=== PATIENT | male | born 1950 | race Caucasian/White ===

== ENCOUNTER 2017-08-10 18:01 | Inpatient (IN) | payer SELFPAY ==
[~2017-08-10] VITALS: Ht 170.2 cm; Wt 79.0 kg
[2017-08-10 18:08] VITALS: Ht 170.2 cm; Wt 79.0 kg
[2017-08-10 20:34] LABS: BASOPHIL % 0.4 % (0-2); PLATELET COUNT 245 x10^3mcL (130-400); RED CELL DISTRIBUTION WIDTH 11.6 % (11.5-14.5)
[2017-08-10 20:46] LABS: CALCIUM 9.5 mg/dL (8.5-10.1); CARBON DIOXIDE 28.7 mmol/L (21-32); CHLORIDE SERUM 99 mmol/L (98-107); CREATININE SERUM 0.9 mg/dL (0.7-1.3); GFR1 > 60 mL/min; GLUCOSE SERUM 276 mg/dL (74-106); POTASSIUM SERUM 3.9 mmol/L (3.5-5.1); SODIUM SERUM 135 mmol/L (136-145)
[2017-08-10 20:50] LABS: ALBUMIN 3.4 g/dL (3.4-5.0); ALKALINE PHOSPHATASE 110 U/L (46-116); ALT/SGPT 33 U/L (16-63); AST/SGOT 18 U/L (15-37); BILIRUBIN TOTAL 0.3 mg/dL (0.20-1.00); TOTAL PROTEIN, SERUM 8.1 g/dL (6.4-8.2)
[2017-08-10 21:21] VITALS: BP 188/93
[2017-08-10 21:59] VITALS: BP 150/70
[2017-08-11 00:05] LABS: microscopic required? YES; urine erythrocyte NEGATIVE (NEGATIVE)
[2017-08-11 00:13] LABS: AMPHETAMINE QUAL UR NONE DETECTED (NEG <=1000)
[2017-08-11 01:48] LABS: MAGNESIUM 2.1 mg/dL (1.8-2.4); PHOSPHOROUS 3.6 mg/dL (2.5-4.9)
[2017-08-11 01:58] LABS: CHOLESTEROL/HDL RATIO 6.5
[2017-08-11 02:03] LABS: FREE T4 1.3 ng/dL (0.76-1.46); FREE THYROXINE INDEX 3.3 ug/dL (1.4-4.5); T4(THYROXINE) 9.7 ug/dL (4.7-13.3)
[2017-08-11 02:06] LABS: T3 TOTAL 1.08 ng/mL
[2017-08-11 06:11] VITALS: BP 121/69
[2017-08-11 09:12] VITALS: BP 130/72
[2017-08-11 13:09] VITALS: BP 130/74
[2017-08-11 17:28] VITALS: BP 130/76
[2017-08-11 21:03] VITALS: BP 146/83
[2017-08-12 05:39] VITALS: BP 117/70
[2017-08-12 06:03] LABS: BASOPHIL % 0.3 % (0-2); PLATELET COUNT 241 x10^3mcL (130-400)
[2017-08-12 06:44] LABS: CARBON DIOXIDE 27.6 mmol/L (21-32); CHLORIDE SERUM 102 mmol/L (98-107); CREATININE SERUM 0.8 mg/dL (0.7-1.3); GFR1 > 60 mL/min; GLUCOSE SERUM 148 mg/dL (74-106); POTASSIUM SERUM 4.4 mmol/L (3.5-5.1); SODIUM SERUM 135 mmol/L (136-145)
[2017-08-12 10:01] VITALS: BP 127/73
[2017-08-12 12:40] VITALS: BP 130/77
[2017-08-12 17:47] VITALS: BP 143/72
[2017-08-12 21:29] VITALS: BP 152/60
[2017-08-13 05:29] VITALS: BP 127/57
[2017-08-13 07:24] LABS: BASOPHIL % 0.2 % (0-2); PLATELET COUNT 241 x10^3mcL (130-400); RED CELL DISTRIBUTION WIDTH 12.1 % (11.5-14.5)
[2017-08-13 07:41] LABS: CALCIUM 8.8 mg/dL (8.5-10.1); CARBON DIOXIDE 26.6 mmol/L (21-32); CHLORIDE SERUM 101 mmol/L (98-107); CREATININE SERUM 0.7 mg/dL (0.7-1.3); GFR1 > 60 mL/min; GLUCOSE SERUM 148 mg/dL (74-106); SODIUM SERUM 134 mmol/L (136-145)
[2017-08-13 09:01] VITALS: BP 131/69
[2017-08-13] MEDS ORDERED: METFORMIN HCL1000 MG PO (13:23)
[2017-08-13] MEDS ORDERED: BD LACTINEX1.4 MG PO (13:24)
[2017-08-13] MEDS ORDERED: LEVAQUIN750 MG PO (13:24)
[2017-08-13] MEDS ORDERED: LISINOPRIL10 MG PO (13:25)
[2017-08-13] MEDS ORDERED: LOT1C TOP (13:27)
[2017-08-13] MEDS ORDERED: LEVEMIR100 U/M1 SC (13:29)
[2017-08-13 13:55] VITALS: BP 144/69
[2017-08-13 17:46] VITALS: BP 148/81
== END 2017-08-13 19:22 | disposition home or self-care (01) | DRG 617 ==
LOC: ED 18:01 → DU 20:25 → MU 20:25 → DU 21:13 → MU 08-12 21:55
PROVIDERS: Emergency Medicine; Family Medicine; Podiatrist Foot & Ankle Surgery
PROC: 0Y6P0Z3 Detachment at Right 1st Toe, Low, Open Approach (ICD-10-PCS; principal; 2017-08-12 07:30)
DX: E11.621 Type 2 diabetes mellitus with foot ulcer (principal); M86.171 Other acute osteomyelitis, right ankle and foot; E44.1 Mild protein-calorie malnutrition; N17.0 Acute kidney failure with tubular necrosis; E11.69 Type 2 diabetes mellitus with other specified complication; B96.89 Other specified bacterial agents as the cause of diseases classified elsewhere; E11.65 Type 2 diabetes mellitus with hyperglycemia; L97.514 Non-pressure chronic ulcer of other part of right foot with necrosis of bone; E11.51 Type 2 diabetes mellitus with diabetic peripheral angiopathy without gangrene; L03.031 Cellulitis of right toe; I16.0 Hypertensive urgency; E78.1 Pure hyperglyceridemia; E11.42 Type 2 diabetes mellitus with diabetic polyneuropathy; Z91.14 Patient's other noncompliance with medication regimen; Z68.29 Body mass index [BMI] 29.0-29.9, adult
CPT/HCPCS: 82962; 83880; 84439; 97116-GP; J0360; J0696; J1956; J3010; J3490; J7030; J7040; Q0092

== ENCOUNTER 2017-10-20 23:02 | Emergency (ER) | payer SELFPAY ==
[~2017-10-20] VITALS: Ht 165.1 cm; Wt 81.2 kg
[~2017-10-20 23:02] MED LIST: BD LACTINEX1.4 MG PO; LEVAQUIN750 MG PO; LEVEMIR100 U/M1 SC; LISINOPRIL10 MG PO; LOT1C TOP; METFORMIN HCL1000 MG PO
[2017-10-20 23:11] VITALS: Ht 165.1 cm; Wt 81.2 kg
[2017-10-21 00:21] LABS: BASOPHIL % 0.3 % (0-2); PLATELET COUNT 158 x10^3mcL (130-400); RED CELL DISTRIBUTION WIDTH 14.1 % (11.5-14.5)
[2017-10-21 00:28] LABS: CALCIUM 8.6 mg/dL (8.5-10.1); CHLORIDE SERUM 103 mmol/L (98-107); CREATININE SERUM 0.9 mg/dL (0.7-1.3); GFR1 > 60 mL/min; GLUCOSE SERUM 105 mg/dL (74-106); POTASSIUM SERUM 4.2 mmol/L (3.5-5.1); SODIUM SERUM 140 mmol/L (136-145)
[2017-10-21 01:05] VITALS: BP 130/66
== END 2017-10-21 01:05 | disposition home or self-care (01) ==
LOC: ED 23:02
PROVIDERS: Emergency Medicine
DX: T25.031A Burn of unspecified degree of right toe(s) (nail), initial encounter (principal); T79.9XXA Unspecified early complication of trauma, initial encounter; X08.8XXA Exposure to other specified smoke, fire and flames, initial encounter; Y93.89 Activity, other specified; Y92.89 Other specified places as the place of occurrence of the external cause; Y99.8 Other external cause status
CPT/HCPCS: 36415; 90715; Q0092

== ENCOUNTER 2017-12-07 18:58 | Emergency (ER) | payer OTHER ==
[~2017-12-07] VITALS: Ht 167.6 cm; Wt 80.7 kg
[2017-12-07 19:17] VITALS: Ht 167.6 cm; Wt 80.7 kg
[2017-12-07 21:23] LABS: CALCIUM 8.5 mg/dL (8.5-10.1); CARBON DIOXIDE 28.2 mmol/L (21-32); CHLORIDE SERUM 105 mmol/L (98-107); CREATININE SERUM 0.9 mg/dL (0.7-1.3); GFR1 > 60 mL/min; GLUCOSE SERUM 161 mg/dL (74-106); POTASSIUM SERUM 3.8 mmol/L (3.5-5.1); SODIUM SERUM 140 mmol/L (136-145)
[2017-12-07 23:34] VITALS: BP 154/75
== END 2017-12-07 23:34 | disposition home or self-care (01) ==
LOC: ED 18:58
PROVIDERS: Emergency Medicine Emergency Medical Services
DX: E11.621 Type 2 diabetes mellitus with foot ulcer (principal); L03.116 Cellulitis of left lower limb; L03.115 Cellulitis of right lower limb; B35.1 Tinea unguium; E11.9 Type 2 diabetes mellitus without complications; I10 Essential (primary) hypertension; Z89.429 Acquired absence of other toe(s), unspecified side
CPT/HCPCS: Q0092